=== PATIENT | female | born 1940 | race Caucasian/White ===

== ENCOUNTER 2023-03-12 07:07 | Outpatient (CLI) | payer MEDICARE, BC, SELFPAY | END 2023-03-12 07:08 | disposition home or self-care (01) | LOC: AMB 03-15 11:49 | PROVIDERS: Visit Provider Family Medicine | DX: R10.9 Unspecified abdominal pain (principal) | CPT/HCPCS: A0425; A0427 ==

== ENCOUNTER 2023-06-08 20:07 | Outpatient (CLI) | payer MEDICARE, BC, SELFPAY | END 2023-06-08 20:08 | disposition home or self-care (01) | LOC: AMB 06-12 17:33 | PROVIDERS: Visit Provider Internal Medicine | DX: R07.89 Other chest pain (principal); M25.512 Pain in left shoulder | CPT/HCPCS: A0425; A0427 ==

== ENCOUNTER 2023-07-25 14:31 | Outpatient (CLI) | payer MEDICARE, BC, SELFPAY | END 2023-07-25 14:32 | disposition home or self-care (01) | LOC: AMB 07-26 16:34 | PROVIDERS: Visit Provider Family Medicine | DX: R19.7 Diarrhea, unspecified (principal); R11.10 Vomiting, unspecified; U07.1 COVID-19 | CPT/HCPCS: A0425; A0427 ==

== ENCOUNTER 2023-08-17 15:42 | Outpatient (CLI) | payer MEDICARE, BC, SELFPAY | END 2023-08-17 15:43 | disposition home or self-care (01) | LOC: AMB 09-06 00:13 | PROVIDERS: Visit Provider Family Medicine | DX: I46.9 Cardiac arrest, cause unspecified (principal) | CPT/HCPCS: A0429 ==